=== PATIENT | female | born 1950 | race African-American/Black ===

== ENCOUNTER → 2016-11-19 | Day surgery (SDC) | payer OTHER ==
[~2016-11-19] VITALS: Ht 167.6 cm; Wt 91.6 kg
[~2016-11-19] MED LIST: BUPIVACAINE-EPI 0.5%-1:200000 50 ML VIAL. ONE; CALC600T4 PO; CHOL100013 PO; DEXAMETHASONE SOD PHOS 20 MG/5 ML VIAL. ONE; HYDR-2758 PO; HYDROcodone/APAP 5/325MG 1 TAB TABLET ONE; HYDROcodone/APAP 5/325MG 1 TAB TABLET PO ONE; HYDROmorphone 2 MG/ML VIAL IV PRN; IV RINGERS,LACTATED 1000ML 1,000 ML IV SCH; LIDOCAINE 1% PF 2 ML VIAL. ID PRN; LIDOCAINE 2% PF Vial for OR 5 ML VIAL. ONE; METHYLENE BLUE 1% 10 ML VIAL. IJ ONE; METHYLENE BLUE 1% 10 ML VIAL. ONE; MIDAZOLAM HCL/PF 2 MG/2 ML VIAL. ONE; MORPHINE SULFATE 2 MG/ML DISP.SYRIN. IV PRN; MORPHINE SULFATE 4 MG/ML DISP.SYRIN. IV PRN; ONDANSETRON PF 4 MG/2 ML VIAL. IV PRN; ONDANSETRON PF 4 MG/2 ML VIAL. ONE; PHENYLEPHRINE in 0.9% NACL PF 1 MG/10 ML DISP.SYRIN. IV ONE; PROCHLORPERAZINE 10 MG/2 ML VIAL. IV PRN; PROPOFOL 20 ML IV ONE; SERT100T PO; SEVOFLURANE 61 TO 120 MINUTES. IH ONE; fentaNYL PF VIAL 100 MCG/2 ML VIAL IV PRN; fentaNYL PF VIAL 100 MCG/2 ML VIAL ONE
--- NOTE | 2016-11-19 04:33 | HP ---
ADMIT DATE: HISTORY OF PRESENT ILLNESS: The patient is doing well, had a routine mammogram and saw microscopic calcifications of the left breast. As such, she was referred to me and we proceeded to discuss the care and she refused needle core or sterotactic biopsy and wanted the area removed surgically and therefore we will proceed. She was given these options more than once and she wanted surgery. PAST MEDICAL HISTORY: Essentially unremarkable, she has not taken medicine for anything and she does have a history of having had a right breast biopsy, which was benign, had a cholecystectomy for gallstones and also had a hysterectomy for benign female gynecologic problems. She otherwise is doing well. ALLERGIES: She has no allergies. SOCIAL HISTORY: She is . Smokes over 1 or 2 cigarettes per week and drinks only socially, not enough to get inebriated and does not use illicit drugs. FAMILY HISTORY: Positive in that there have been aunts and cousins with breast cancer. PHYSICAL EXAMINATION: GENERAL: Shows an alert female in no acute distress. HEAD, EARS, EYES, NOSE, AND THROAT: Grossly normal. The breast and axilla have been unremarkable. CHEST: Negative. HEART: Negative. ABDOMEN: Negative. EXTREMITIES: Grossly normal. IMPRESSION: Microscopic calcifications of left breast. DENY HYLTON MD DR: [place]/nts JOB#: [id number] / [id number] [facility] DENY HYLTON MD MTD
[2016-11-19 08:36] LABS: BASO % 1 % (0-3); EOS % 2 % (0-3); HEMATOCRIT 39.8 % (36.0-47.0); HEMOGLOBIN 13.2 g/dL (12.0-15.5); LYMPH # 1.7 x10^3/uL (1.0-4.8); LYMPH % 27 % (24-48); MEAN CORPUSCULAR HEMOGLOBIN 29 pg (25-35); MEAN CORPUSCULAR HGB CONC 33 g/dL (31-37); MEAN CORPUSCULAR VOLUME 89 fL (79-100); MONO % 6 % (0-9); NEUT % 64 % (31-73); PLATELET COUNT 248 x10^3/uL (140-400); RED BLOOD COUNT 4.49 x10^6/uL (3.50-5.40); RED CELL DISTRIBUTION WIDTH 14.4 % (11.5-14.5); WHITE BLOOD COUNT 6.2 x10^3/uL (4.0-11.0)
[2016-11-19 08:44] LABS: INR 0.9 (0.8-1.1); PROTHROMBIN TIME PATIENT 11.7 SEC (11.7-14.0)
[2016-11-19 08:47] LABS: CREATININE 0.8 mg/dL (0.6-1.0); GFR 86.8; POTASSIUM 4.1 mmol/L (3.5-5.1)
[2016-11-19 08:52] LABS: ALBUMIN 3.7 g/dL (3.4-5.0); TOTAL BILIRUBIN 0.3 mg/dL (0.2-1.0); TOTAL PROTEIN 7.5 g/dL (6.4-8.2)
--- NOTE | 2016-11-19 09:11 | RAD ---
Left breast needle localization, 11/19/2016: History: Suspicious microcalcifications An outside study demonstrated a cluster of suspicious microcalcifications in the upper outer quadrant of the left breast posteriorly. Under local anesthesia, aseptic conditions and mammographic guidance a Kopan's needle was passed into this region via a superior approach. A small amount methylene blue was injected just inferior to the cluster of calcifications as requested by Dr. Cerda. The modified Kopans retention wire was then passed through the needle and the needle removed. Final images show that the microcalcifications surround the thickened portion of the retention wire approximately 5 cm deep to the skin surface. The patient tolerated the procedure well and was sent to surgery in good condition.
--- NOTE | 2016-11-19 10:57 | PDOC ---
SURGICAL PROGRESS NOTE Subjective No change in dictated H&P. Vital Signs Vital Signs Date Time Temp Pulse Resp B/P (MAP) Pulse Ox O2 Delivery O2 Flow Rate FiO2 11/19/16 08:30 97.5 70 20 97 97.5 11/19/16 08:20 142/76 Room Air Labs Laboratory Tests Test 11/19/16 08:20 White Blood Count 6.2 x10^3/uL (4.0-11.0) Red Blood Count 4.49 x10^6/uL (3.50-5.40) Hemoglobin 13.2 g/dL (12.0-15.5) Hematocrit 39.8 % (36.0-47.0) Mean Corpuscular Volume 89 fL (79-100) Mean Corpuscular Hemoglobin 29 pg (25-35) Mean Corpuscular Hemoglobin Concent 33 g/dL (31-37) Red Cell Distribution Width 14.4 % (11.5-14.5) Platelet Count 248 x10^3/uL (140-400) Neutrophils (%) (Auto) 64 % (31-73) Lymphocytes (%) (Auto) 27 % (24-48) Monocytes (%) (Auto) 6 % (0-9) Eosinophils (%) (Auto) 2 % (0-3) Basophils (%) (Auto) 1 % (0-3) Neutrophils # (Auto) 3.9 x10^3uL (1.8-7.7) Lymphocytes # (Auto) 1.7 x10^3/uL (1.0-4.8) Monocytes # (Auto) 0.4 x10^3/uL (0.0-1.1) Eosinophils # (Auto) 0.1 x10^3/uL (0.0-0.7) Basophils # (Auto) 0.0 x10^3/uL (0.0-0.2) Prothrombin Time 11.7 SEC (11.7-14.0) Prothromb Time International Ratio 0.9 (0.8-1.1) Sodium Level 139 mmol/L (136-145) Potassium Level 4.1 mmol/L (3.5-5.1) Chloride Level 104 mmol/L (98-107) Carbon Dioxide Level 28 mmol/L (21-32) Anion Gap 7 (6-14) Blood Urea Nitrogen 11 mg/dL (7-20) Creatinine 0.8 mg/dL (0.6-1.0) Estimated GFR (Cockcroft-Gault) 86.8 BUN/Creatinine Ratio 14 (6-20) Glucose Level 116 mg/dL (70-99) Calcium Level 9.0 mg/dL (8.5-10.1) Total Bilirubin 0.3 mg/dL (0.2-1.0) Aspartate Amino Transf (AST/SGOT) 14 U/L (15-37) Alanine Aminotransferase (ALT/SGPT) 23 U/L (14-59) Alkaline Phosphatase 92 U/L (46-116) Total Protein 7.5 g/dL (6.4-8.2) Albumin 3.7 g/dL (3.4-5.0) Albumin/Globulin Ratio 1.0 (1.0-1.7) Laboratory Tests Test 11/19/16 08:20 White Blood Count 6.2 x10^3/uL (4.0-11.0) Red Blood Count 4.49 x10^6/uL (3.50-5.40) Hemoglobin 13.2 g/dL (12.0-15.5) Hematocrit 39.8 % (36.0-47.0) Mean Corpuscular Volume 89 fL (79-100) Mean Corpuscular Hemoglobin 29 pg (25-35) Mean Corpuscular Hemoglobin Concent 33 g/dL (31-37) Red Cell Distribution Width 14.4 % (11.5-14.5) Platelet Count 248 x10^3/uL (140-400) Neutrophils (%) (Auto) 64 % (31-73) Lymphocytes (%) (Auto) 27 % (24-48) Monocytes (%) (Auto) 6 % (0-9) Eosinophils (%) (Auto) 2 % (0-3) Basophils (%) (Auto) 1 % (0-3) Neutrophils # (Auto) 3.9 x10^3uL (1.8-7.7) Lymphocytes # (Auto) 1.7 x10^3/uL (1.0-4.8) Monocytes # (Auto) 0.4 x10^3/uL (0.0-1.1) Eosinophils # (Auto) 0.1 x10^3/uL (0.0-0.7) Basophils # (Auto) 0.0 x10^3/uL (0.0-0.2) Prothrombin Time 11.7 SEC (11.7-14.0) Prothromb Time International Ratio 0.9 (0.8-1.1) Sodium Level 139 mmol/L (136-145) Potassium Level 4.1 mmol/L (3.5-5.1) Chloride Level 104 mmol/L (98-107) Carbon Dioxide Level 28 mmol/L (21-32) Anion Gap 7 (6-14) Blood Urea Nitrogen 11 mg/dL (7-20) Creatinine 0.8 mg/dL (0.6-1.0) Estimated GFR (Cockcroft-Gault) 86.8 BUN/Creatinine Ratio 14 (6-20) Glucose Level 116 mg/dL (70-99) Calcium Level 9.0 mg/dL (8.5-10.1) Total Bilirubin 0.3 mg/dL (0.2-1.0) Aspartate Amino Transf (AST/SGOT) 14 U/L (15-37) Alanine Aminotransferase (ALT/SGPT) 23 U/L (14-59) Alkaline Phosphatase 92 U/L (46-116) Total Protein 7.5 g/dL (6.4-8.2) Albumin 3.7 g/dL (3.4-5.0) Albumin/Globulin Ratio 1.0 (1.0-1.7) DENY HYLTON MD Nov 19, 2016 10:57
--- NOTE | 2016-11-19 11:00 | PDOC ---
SURGICAL PROGRESS NOTE Subjective Op Note Surgeon...........................................Prashant Pre op diag......................................suspicious microcalcification left breast Post op diag....................................same Anesthesia......................................general Procedure.......................................left breast biopsy via needle localization Drains.............................................none Fluids.............................................see anesthesia sheet Blood loss......................................10cc Condition........................................satisfactory Vital Signs Vital Signs Date Time Temp Pulse Resp B/P (MAP) Pulse Ox O2 Delivery O2 Flow Rate FiO2 11/19/16 08:30 97.5 70 20 97 97.5 11/19/16 08:20 142/76 Room Air Labs Laboratory Tests Test 11/19/16 08:20 White Blood Count 6.2 x10^3/uL (4.0-11.0) Red Blood Count 4.49 x10^6/uL (3.50-5.40) Hemoglobin 13.2 g/dL (12.0-15.5) Hematocrit 39.8 % (36.0-47.0) Mean Corpuscular Volume 89 fL (79-100) Mean Corpuscular Hemoglobin 29 pg (25-35) Mean Corpuscular Hemoglobin Concent 33 g/dL (31-37) Red Cell Distribution Width 14.4 % (11.5-14.5) Platelet Count 248 x10^3/uL (140-400) Neutrophils (%) (Auto) 64 % (31-73) Lymphocytes (%) (Auto) 27 % (24-48) Monocytes (%) (Auto) 6 % (0-9) Eosinophils (%) (Auto) 2 % (0-3) Basophils (%) (Auto) 1 % (0-3) Neutrophils # (Auto) 3.9 x10^3uL (1.8-7.7) Lymphocytes # (Auto) 1.7 x10^3/uL (1.0-4.8) Monocytes # (Auto) 0.4 x10^3/uL (0.0-1.1) Eosinophils # (Auto) 0.1 x10^3/uL (0.0-0.7) Basophils # (Auto) 0.0 x10^3/uL (0.0-0.2) Prothrombin Time 11.7 SEC (11.7-14.0) Prothromb Time International Ratio 0.9 (0.8-1.1) Sodium Level 139 mmol/L (136-145) Potassium Level 4.1 mmol/L (3.5-5.1) Chloride Level 104 mmol/L (98-107) Carbon Dioxide Level 28 mmol/L (21-32) Anion Gap 7 (6-14) Blood Urea Nitrogen 11 mg/dL (7-20) Creatinine 0.8 mg/dL (0.6-1.0) Estimated GFR (Cockcroft-Gault) 86.8 BUN/Creatinine Ratio 14 (6-20) Glucose Level 116 mg/dL (70-99) Calcium Level 9.0 mg/dL (8.5-10.1) Total Bilirubin 0.3 mg/dL (0.2-1.0) Aspartate Amino Transf (AST/SGOT) 14 U/L (15-37) Alanine Aminotransferase (ALT/SGPT) 23 U/L (14-59) Alkaline Phosphatase 92 U/L (46-116) Total Protein 7.5 g/dL (6.4-8.2) Albumin 3.7 g/dL (3.4-5.0) Albumin/Globulin Ratio 1.0 (1.0-1.7) Laboratory Tests Test 11/19/16 08:20 White Blood Count 6.2 x10^3/uL (4.0-11.0) Red Blood Count 4.49 x10^6/uL (3.50-5.40) Hemoglobin 13.2 g/dL (12.0-15.5) Hematocrit 39.8 % (36.0-47.0) Mean Corpuscular Volume 89 fL (79-100) Mean Corpuscular Hemoglobin 29 pg (25-35) Mean Corpuscular Hemoglobin Concent 33 g/dL (31-37) Red Cell Distribution Width 14.4 % (11.5-14.5) Platelet Count 248 x10^3/uL (140-400) Neutrophils (%) (Auto) 64 % (31-73) Lymphocytes (%) (Auto) 27 % (24-48) Monocytes (%) (Auto) 6 % (0-9) Eosinophils (%) (Auto) 2 % (0-3) Basophils (%) (Auto) 1 % (0-3) Neutrophils # (Auto) 3.9 x10^3uL (1.8-7.7) Lymphocytes # (Auto) 1.7 x10^3/uL (1.0-4.8) Monocytes # (Auto) 0.4 x10^3/uL (0.0-1.1) Eosinophils # (Auto) 0.1 x10^3/uL (0.0-0.7) Basophils # (Auto) 0.0 x10^3/uL (0.0-0.2) Prothrombin Time 11.7 SEC (11.7-14.0) Prothromb Time International Ratio 0.9 (0.8-1.1) Sodium Level 139 mmol/L (136-145) Potassium Level 4.1 mmol/L (3.5-5.1) Chloride Level 104 mmol/L (98-107) Carbon Dioxide Level 28 mmol/L (21-32) Anion Gap 7 (6-14) Blood Urea Nitrogen 11 mg/dL (7-20) Creatinine 0.8 mg/dL (0.6-1.0) Estimated GFR (Cockcroft-Gault) 86.8 BUN/Creatinine Ratio 14 (6-20) Glucose Level 116 mg/dL (70-99) Calcium Level 9.0 mg/dL (8.5-10.1) Total Bilirubin 0.3 mg/dL (0.2-1.0) Aspartate Amino Transf (AST/SGOT) 14 U/L (15-37) Alanine Aminotransferase (ALT/SGPT) 23 U/L (14-59) Alkaline Phosphatase 92 U/L (46-116) Total Protein 7.5 g/dL (6.4-8.2) Albumin 3.7 g/dL (3.4-5.0) Albumin/Globulin Ratio 1.0 (1.0-1.7) DENY HYLTON MD Nov 19, 2016 11:00
--- NOTE | 2016-11-19 12:34 | RAD ---
Left specimen mammogram, 11/19/2016: History: Suspicious microcalcifications Additional mammogram of the surgical specimen from the patient's left breast demonstrates the targeted microcalcifications within the specimen. They lie adjacent to the hook of the retention wire.
--- NOTE | 2016-11-19 14:00 | OP ---
DATE OF SURGERY: SURGEON: Sumit Hylton MD PREOPERATIVE DIAGNOSIS: Suspicious microcalcifications, left upper outer quadrant breast. POSTOPERATIVE DIAGNOSIS: Suspicious microcalcifications, left upper outer quadrant breast. ANESTHESIA: General. PROCEDURE: Excision of suspicious microcalcifications, left upper outer quadrant of the left breast via needle localization. TECHNIQUE: Under general anesthesia, the patient was properly prepped and draped in a routine fashion. She was placed in a little reverse Trendelenburg position with the right side somewhat down. We then made a small incision in the upper outer quadrant of the breast and then following the skin lines a little bit above the wire. We then went through the skin and one about a quarter of an inch over to the wire, which was at mid portion of the incision and then pulled it into the wound, so that the wire stayed in the breast but was delivered into the wound. We then used Lobo retractors and also Martines's to then spread the skin edges and using the clamp, we clamped the guidewire and the breast tissue. We then used cautery to go around the guidewire widely and down pass into the methylene blue. This having been done, we then were able to deliver the complete specimen with a guidewire and sent it to Radiology. The radiologist in fact said then after getting a mammogram of the specimen, that the microcalcifications in question have been removed from the patient and no further surgery was necessary. There was a fairly large bleeder in the lateral portion of the breast, which was clamped and then suture ligated with 2-0 Vicryl. We then inspected the wound. There was no further bleeding and we then after having had a good report and removed the tissue that was in question, we then closed the breast tissue with interrupted 3-0 and 4-0 Vicryl. The skin was closed using a subcuticular 5-0 nylon and the procedure was terminated. Dermabond was used and then a small dressing was applied. The blood loss was probably 25-30 mL as she did have bleeding from that one bleeder. Fluids given can be obtained from the anesthesia sheet. No drains were used and the condition of the patient is satisfactory as she is returned to the recovery room. SUMIT HYLTON MD DR: [place]/gee JOB#: [id number] / [id number] MTDD
[2016-11-19 15:10] VITALS: BP 145/74
--- NOTE | 2016-11-22 13:24 | PATHOLOGY ---
PATHOLOGY REPORT * * * * * * * * FINAL DIAGNOSIS: Breast tissue, wire-localized left breast biopsy: - Segment of predominantly fatty breast tissue identified showing no significant pathologic abnormalities. COMMENT: Sections of the left breast biopsy predominantly reveal fatty breast tissue. There are scattered atrophic breast epithelial elements. There is no evidence of malignancy. Please correlate with clinical and radiographic findings. (JPM:mml; 11/22/2016) REPORT ELECTRONICALLY SIGNED BY: Dagoberto Collazo M.D. DATE/TIME: 11/22/2016 13:21 * * * * * * * * GROSS PATHOLOGY: The specimen is received in formalin labeled "Maliha Mendiola, left breast biopsy". Received is a 33 g unoriented segment of bright yellow lobulated tissue measuring 7.8 x 5.8 x 1.7 cm in greatest dimensions. There is a localization wire present, however, orientation is not provided. The specimen is inked black. Sectioning reveals bright yellow, lobulated cut surfaces throughout with no grossly distinct nodules or lesions. Alternating sections are submitted in cassettes A1 through A21, with several sections additionally bisected or trisected. The cold ischemic time is 12 minutes. The total formalin fixation time is 10 hours and 23 minutes. (CAA; 11/19/2016) INITIAL CPT CODE(S): A; 26003 Professional services performed [place] [address] Technical services performed by [facility] at [address] [place] [address], [address] [address]. SPECIMEN(S) RECEIVED: A.Left breast biopsy CLINICAL HISTORY: Left breast mass PATIENT: MALIHA MENDIOLA /AGE: 607/29/1950 (Age: 66) PATIENT #: [id number] ALT CASE #: SPECIMEN COLLECTION DATE: 11/19/2016 SPECIMEN RECEIVED DATE: 11/19/2016 [facility] - [address] [place] [address] - PHONE: [phone] * * * END OF REPORT * * *
== END | disposition home or self-care (01) ==
LOC: SURG 07:41
PROVIDERS: ATTEND Specialist
DX: R92.0 Mammographic microcalcification found on diagnostic imaging of breast (principal); G62.9 Polyneuropathy, unspecified; F41.9 Anxiety disorder, unspecified; F32.9 Major depressive disorder, single episode, unspecified; K21.9 Gastro-esophageal reflux disease without esophagitis; F17.200 Nicotine dependence, unspecified, uncomplicated; Z79.01 Long term (current) use of anticoagulants; Z72.0 Tobacco use; Z86.69 Personal history of other diseases of the nervous system and sense organs; Z90.49 Acquired absence of other specified parts of digestive tract; Z90.710 Acquired absence of both cervix and uterus
CPT/HCPCS: 19120; 19281; 36415; 76098; 80053; 85025; 85610; J0690; J1100; J2250; J2370; J2405; J2704; J3010; Q9968; 88305; J2001